=== PATIENT | female | born 1970 | race Caucasian/White ===

== ENCOUNTER 2023-11-21 09:01 | Emergency (ER) | payer BC ==
[~2023-11-21] VITALS: Ht 162.6 cm; Wt 59.1 kg
[2023-11-21 10:17] VITALS: BP 129/89
== END 2023-11-21 10:15 | disposition home or self-care (01) ==
LOC: ED 09:01
DX: S09.90XA Unspecified injury of head, initial encounter (principal); S01.81XA Laceration without foreign body of other part of head, initial encounter; S01.111A Laceration without foreign body of right eyelid and periocular area, initial encounter; W01.198A Fall on same level from slipping, tripping and stumbling with subsequent striking against other object, initial encounter

== ENCOUNTER → 2024-05-18 | Outpatient (CLI) | payer BC ==
[2024-05-18 15:50] LABS: BASO # 0.02 K/mm3 (0.02-0.10); HEMOGLOBIN 13.8 g/dL (12.5-16.0); LYMPH# 1.52 K/mm3 (1.50-4.00); MEAN CELL VOLUME 93 fl (78-100); MEAN CORPUSCULAR HEMOGLOBIN 31 pg (27-31); MEAN CORPUSCULAR HGB CONC 34 g/dL (33-37); MEAN PLATELET VOLUME 8.6 fl (7.4-10.4); MONO # 0.36 K/mm3 (0.20-0.80); NEU # 2.72 K/mm3 (1.40-6.50); PLATELET COUNT 325 K/mm3 (130-400); RED CELL DISTRIBUTION WIDTH 12.5 % (11.5-14.5); WHITE BLOOD COUNT 4.6 K/mm3 (4.8-10.8)
[2024-05-18 15:59] LABS: ALBUMIN 4.4 g/dL (3.5-5.0)
[2024-05-18 16:00] LABS: CALCIUM 9.9 mg/dL (8.3-10.5)
[2024-05-18 16:02] LABS: TOTAL PROTEIN 7.7 g/dL (6.4-8.3)
[2024-05-18 16:03] LABS: TOTAL BILIRUBIN 0.5 mg/dL (0.2-1.2)
[2024-05-18 22:58] LABS: CORTISOL RANDOM 7 ug/dL (3-20); FOLLICLE STIMULATING HORMONE 100.7 mIU/mL (()); LUTENIZING HORMONE 44.1 mIU/mL (()); PROGESTERONE 0.1 ng/mL (())
== END ==
LOC: LAB 15:23
PROVIDERS: Family Medicine
DX: E78.5 Hyperlipidemia, unspecified (principal); E55.9 Vitamin D deficiency, unspecified; I10 Essential (primary) hypertension; N91.1 Secondary amenorrhea; E27.9 Disorder of adrenal gland, unspecified